=== PATIENT | male | born 1960 | race Caucasian/White ===

== ENCOUNTER → 2021-05-05 | Outpatient (CLI) | payer MEDICARE ==
--- NOTE | 2021-05-05 16:46 | RAD ---
CT LOWER LEFT EXTREMITY WITHOUT CONTRAST History: Status post fall. Comparison: None. Technique: Noncontrast CT of the left foot. Findings: The ankle mortise and talar dome are intact. Small tibiotalar osteophytes. There are advanced degener ative changes of the subtalar joints with prominent subchondral cystic change. Multiple small cortica katya ossific densities at the dorsal talus and navicular consistent with sequela of old trauma. Mild i rregularity of the os trigonum.The Lisfranc is normally aligned. There are multiple hammertoe deformi ties. Nonweightbearing suggestion of pes planus. Moderate plantar calcaneal enthesophyte. The [place] s, peroneal, flexor and extensor tendons are grossly intact. There is mild soft tissue swelling about the ankle and foot. Impression: 1. Degenerative changes of the left ankle and foot without acute osseous abnormality. ------ Exposure: One or more of the following individualized dose reduction techniques were utilized for thi s examination: 1. Automated exposure control 2. Adjustment of the mA and/or kV according to patient size 3. Use of iterative reconstruction technique. Electronically signed by: Wero Powell MD (05/05/2021 4:44 PM) [facility]
== END ==
LOC: CT 14:23
PROVIDERS: ATTEND Orthopaedic Surgery
DX: M20.42 Other hammer toe(s) (acquired), left foot (principal); M21.42 Flat foot [pes planus] (acquired), left foot; M25.375 Other instability, left foot; M25.772 Osteophyte, left ankle; M79.89 Other specified soft tissue disorders
CPT/HCPCS: 73700

== ENCOUNTER → 2021-08-04 | Outpatient (CLI) | payer MEDICARE ==
--- NOTE | 2021-08-04 13:36 | RAD ---
EXAM: Left foot, 3 views. HISTORY: Pain. COMPARISON: None. FINDINGS: 3 views of the left foot are obtained. There is no fracture, dislocation or subluxation. Th ere are chronic corticated ossicles along the medial mid foot. There is pes planus. There is a small plantar spur. There is a prominent os trigonum. There are second through fifth hammertoe deformities. There is mild tibiotalar joint spurring. There is ankle and hindfoot soft tissue swelling. IMPRESSION: 1. Pes planus and hammertoe deformities. 2. Small plantar spur. 3. Mild hindfoot osteoarthritis and hindfoot and ankle soft tissue edema. Electronically signed by: Krysten Beatty MD (08/04/2021 1:33 PM) [id number]
== END ==
LOC: RAD 12:26
PROVIDERS: ATTEND Podiatrist
DX: M19.072 Primary osteoarthritis, left ankle and foot (principal); M21.42 Flat foot [pes planus] (acquired), left foot; M20.42 Other hammer toe(s) (acquired), left foot; M77.32 Calcaneal spur, left foot
CPT/HCPCS: 73630

== ENCOUNTER → 2021-08-18 | Outpatient (CLI) | payer MEDICARE ==
--- NOTE | 2021-08-18 16:55 | RAD ---
Study: XR FOOT_LEFT 3 VIEWS Indication: Foot and ankle pain. Comparison: CT from 05/05/2021 Findings: Pes planus. Partial downward subluxation of the navicular in relation to the talus with offset measur ed at 5 mm at the dorsal aspect of the joint. Chronic cystic change along both sides of the tarsal si nus. Chronic foci of ossification slice loose bodies along the dorsal/medial margin of the talonavicu lar joint. Os trigonum and/or loose bodies. Small plantar calcaneal spur. Flexion deformities of the lesser toes.. Partially assessed mild appearing arthrosis at the ankle. Hindfoot valgus with degenera tive remodeling of the lateral malleolus. The bones appear osteopenic. Impression: 1. Hindfoot valgus with pes planus. Downward sagging across Chopart's joint measured at approximately 5 mm. Flexion deformities of the lesser toes. 2. Several degenerative/chronic observations discussed above. Electronically signed by: OSCAR AGUILAR MD (08/18/2021 4:53 PM) [id number]
--- NOTE | 2021-08-18 17:03 | RAD ---
EXAM: Left ankle, 3 views. HISTORY: Pain. COMPARISON: 05/05/2021. FINDINGS: 3 views of the left ankle are obtained. There is no acute fracture. The ankle mortise is in tact. There is no osteochondral lesion. There is a prominent os trigonum. There is mild degenerative spurring of the tibiotalar joint. There is a small plantar spur. There is pes planus. There is soft t issue edema. IMPRESSION: 1. No acute osseous finding. 2. Soft tissue edema. 3. Degenerative change described above. 4. Pes planus. Please refer to the separate report for the foot radiograph of the same date for addit ional findings regarding the foot. Electronically signed by: Krysten Beatty MD (08/18/2021 5:00 PM) [id number]
== END ==
LOC: RAD 13:57
PROVIDERS: ATTEND Podiatrist
DX: S93.02XA Subluxation of left ankle joint, initial encounter (principal); M19.072 Primary osteoarthritis, left ankle and foot; M77.32 Calcaneal spur, left foot; M21.42 Flat foot [pes planus] (acquired), left foot; M24.072 Loose body in left ankle; M21.072 Valgus deformity, not elsewhere classified, left ankle; M77.8 Other enthesopathies, not elsewhere classified; M20.5X2 Other deformities of toe(s) (acquired), left foot; M79.89 Other specified soft tissue disorders; X58.XXXA Exposure to other specified factors, initial encounter; Y93.89 Activity, other specified; Y92.89 Other specified places as the place of occurrence of the external cause; Y99.8 Other external cause status
CPT/HCPCS: 73610; 73630

== ENCOUNTER → 2021-12-01 | Outpatient (CLI) | payer MEDICARE ==
--- NOTE | 2021-12-03 07:06 | RAD ---
XR FOOT_LEFT 3 VIEWS 12/01/2021 2:30 PM INDICATION: Pain, post surgery COMPARISON: Left foot radiograph 08/18/2021. TECHNIQUE: 3 views of the left foot are provided. FINDINGS/ IMPRESSION: Postoperative changes are identified from arthrodesis of the hindfoot. There are 2 partially threaded screws involving the calcaneus. Plate and screw fixation identified along the talonavicular joint an d medial cuneiform. There is no lucency surrounding the hardware. No acute fracture identified. Resid ual soft tissue swelling. Overlapping cast material limits evaluation of fine osseous detail. Electronically signed by: Irlanda Baldwin MD (12/03/2021 7:04 AM) [id number]
== END ==
LOC: RAD 14:18
PROVIDERS: ATTEND Podiatrist
DX: Z47.89 Encounter for other orthopedic aftercare (principal)
CPT/HCPCS: 73630